=== PATIENT | male | born 1980 | race Caucasian/White ===

== ENCOUNTER 2021-03-25 08:50 | Outpatient (RCR) | payer BC, SELFPAY ==
--- NOTE | 2021-03-27 18:46 | PTOPEVAL ---
Thank you for referring Mc Munoz to [facility].? The patient is scheduled to be seen for therapy? ____x/week for ___ weeks. Please review, sign, date and return this plan of care PARAMJIT. I agree with and certify that the following plan of care is medically necessary. Referring Physician Date Admitting Provider: Attending Provider: Stuart Garcia, MD Referring Provider: *PT Outpatient Evaluation Start: 03/25/21 09:01 Freq: Status: Active Protocol: Document 03/25/21 09:01 [facility] (Rec: 03/25/21 10:05 [facility] [id number]) Therapy Assessment Status Assessment Status Assessment Status Evaluation Evaluation Information Problem Diagnosis L hamstrings strain Onset 03/23/21 Additional Evaluation Detail LEFS = 55% functionally declined Subjective Information patient reports he slipped and Query Text:As Reported By Patient/ injured his L leg about 2 Family days ago. he reports he was walking and the leg slipped out in front of him. he reports no imaging. he reports no medication prescribed. he reports he does not have nay bruising to the L LE. he reports the pain is located behind the knee, thigh, and lower back/buttock. he reports he feels the pain mostly in the gluteal fold and behind the knee of the L LE. he reports difficulty sitting on the L side. he reports he is off work currently due to the injury. 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 he reports he has increased pain with sitting on the L side, walking, putting on socks and shoes, bending forward. he reports he has had compression fractures in the spine, and a form of break in the back (he thinks tranverse process). he reports decreased pain with walking and standing. he reports he did fall during this injury and fell with his legs split L forward. Prior Level of Function Comments Additional Prior Level of Function prior to injury, no issues Comments
--- NOTE | 2021-04-11 13:12 | PCPTNOTE ---
04/11/21 - patient has called and reports he does not want to continue with skilled PT at this time. he will be dc'd from skilled PT services, and all progress towards goals will be taken from his most recent evaluation/note. CLYDE
== END 2021-03-25 14:48 | disposition home or self-care (01) ==
LOC: CHSPT 08:50
PROVIDERS: PCP Family Medicine; Visit Provider Family Medicine
DX: S76.312A Strain of muscle, fascia and tendon of the posterior muscle group at thigh level, left thigh, initial encounter (principal)
CPT/HCPCS: 97014; 97110; 97161; G0283